=== PATIENT | male | born 1970 | race Caucasian/White ===

== ENCOUNTER → 2023-05-10 15:25 | Outpatient (REF) | payer BC, SELFPAY | LOC: HWRAD 15:25 | PROVIDERS: ATTENDING PHYSICIAN Nurse Practitioner; FAMILY PHYSICIAN Internal Medicine; REFERRING PHYSICIAN Chiropractor | DX: S40.011A Contusion of right shoulder, initial encounter (principal); J45.909 Unspecified asthma, uncomplicated | CPT/HCPCS: 71046; 73030 ==

== ENCOUNTER → 2024-03-08 16:38 | Outpatient (REF) | payer BC, SELFPAY | LOC: HWRAD 16:38 | PROVIDERS: ATTENDING PHYSICIAN Hospitalist | DX: R05.3 Chronic cough (principal) | CPT/HCPCS: 71046 ==

== ENCOUNTER → 2024-03-28 16:28 | Outpatient (REF) | payer BC, SELFPAY | LOC: HWRAD 16:28 | PROVIDERS: ATTENDING PHYSICIAN Nurse Practitioner | DX: J40 Bronchitis, not specified as acute or chronic (principal) | CPT/HCPCS: 71046 ==

== ENCOUNTER → 2024-05-17 15:40 | Outpatient (REF) | payer BC, SELFPAY | LOC: MRI 3T 15:40 | PROVIDERS: ATTENDING PHYSICIAN Internal Medicine Gastroenterology; FAMILY PHYSICIAN Internal Medicine | DX: K76.0 Fatty (change of) liver, not elsewhere classified (principal) | CPT/HCPCS: 74183; A9575 ==